=== PATIENT | female | born 1965 | race Caucasian/White ===

== ENCOUNTER 2022-07-26 19:44 | Emergency (ER) | payer OTHER ==
[~2022-07-26] VITALS: Ht 162.6 cm; Wt 76.7 kg
--- NOTE | 2022-07-26 20:10 | NUR ---
First contact. Pt and daughter present at bedside. Both seem hesitant to allow for care. Pt's daughter mentioned concern over cost for placing mother on monitor. Also, pt does not want to get into gown if not required. Notified Dr. Umanzor. Awaiting plan of care direction from physician. Pt c/o left sided flank pain that radiates down left leg 01/25. Daughter states,"She said that earlier."
[2022-07-26] MEDS ORDERED: ACETAMINOPHEN ES 500 MG TABLET ONE (20:29)
[2022-07-26] MEDS ORDERED: KETOROLAC TROMETHAMINE 15 MG INJ ONE (20:29)
[2022-07-26] MEDS ORDERED: CYCLOBENZAPRINE HCL 10 MG TABLET ONE (20:29)
[2022-07-26] MEDS ORDERED: CYCLOBENZAPRINE HCL 10 MG TABLET PO ONE (20:30)
[2022-07-26] MEDS ORDERED: ACETAMINOPHEN ES 500 MG TABLET PO ONE (20:30)
[2022-07-26] MEDS ORDERED: KETOROLAC TROMETHAMINE 15 MG INJ IM ONE (20:30)
[2022-07-26] MEDS ORDERED: CYCL10TA9 PO (21:31)
--- NOTE | 2022-07-26 21:35 | NUR ---
Patient discharged to home in stable condition. Written and verbal after care instructions given. Patient verbalizes understanding of instructions. Stressed follow up or return to ER for worsening s/s. Pt refused last set of vitals. Pt and daughter both rushing to leave at this time.
== END 2022-07-26 21:35 | disposition home or self-care (01) ==
LOC: ER 19:44
DX: M62.830 Muscle spasm of back (principal); M54.50 Low back pain, unspecified
CPT/HCPCS: 99283; 96372; J1885; A4663; A9150

== ENCOUNTER 2022-08-06 20:09 | Emergency (ER) | payer OTHER ==
[~2022-08-06] VITALS: Ht 165.1 cm; Wt 74.8 kg
[~2022-08-06 20:09] MED LIST: CYCL10TA9 PO
--- NOTE | 2022-08-06 20:27 | NUR ---
Dr. Leal evaluating patient at bedside. MSE in progress.
[2022-08-06] MEDS ORDERED: KETOROLAC TROMETHAMINE 15 MG INJ ONE (20:38)
[2022-08-06] MEDS ORDERED: KETOROLAC TROMETHAMINE 15 MG INJ IM ONE (20:45)
--- NOTE | 2022-08-06 20:53 | NUR ---
Xray at bedside
--- NOTE | 2022-08-06 22:10 | NUR ---
Patient's right wrist aurelia wrapped
[2022-08-06] MEDS ORDERED: IBUP-76 PO (22:15)
--- NOTE | 2022-08-06 22:18 | NUR ---
Patient discharged to home in stable condition. Written and verbal after care instructions given. Patient verbalizes understanding of instructions. Stressed follow up or return to ER for worsening s/s.
[2022-08-06 22:48] VITALS: BP 109/71
== END 2022-08-06 22:18 | disposition home or self-care (01) ==
LOC: ER 20:11
DX: G56.01 Carpal tunnel syndrome, right upper limb (principal); M25.531 Pain in right wrist
CPT/HCPCS: 99283; 73110; 96372; J1885; A4663